=== PATIENT | male | born 1960 | race Caucasian/White ===

== ENCOUNTER → 2016-07-11 | Outpatient (CLI) | payer MEDICARE, MEDICAID ==
[~2016-07-11] MED LIST: DESV100T PO; HYDR2 PO
== END | disposition home or self-care (01) ==
LOC: RADPV 13:41
PROVIDERS: ATTEND Legal Medicine
DX: M16.0 Bilateral primary osteoarthritis of hip (principal); M24.852 Other specific joint derangements of left hip, not elsewhere classified
CPT/HCPCS: 73502

== ENCOUNTER → 2016-09-22 | Outpatient (CLI) | payer MEDICARE, MEDICAID ==
[~2016-09-22] MED LIST changes: +ARIP2 PO; +ATOR10TA84 PO; +BENZ-26 PO; +CIPR-278 PO; +DESV50TA PO; +DIAZ10TA PO; +DIAZ5 PO; +DULO30CA2 PO; +ESZO3 PO; +GUAI600T PO; +HYDR-3971 PO; +HYDR16TA PO; +LEVAQUIN PO; +LEVO500 PO; +MIRT15 PO; +MIRT30 PO; +OXYC10 PO; +OXYC10TA72 PO; +OXYC20TA79 PO; +OXYC30TA PO; +OXYC30TA2 PO; +OXYC80 PO; +OXYC80TA28 PO; +OXYM10TA PO; +PANT40TA25 PO; +QUET100T PO; +SULF-168 PO; +TRIA0.252 PO; +VENL-67 PO; +VENL-68 PO; +[UNRECOGNIZED DRUG - OTHER] PO
== END | disposition home or self-care (01) ==
LOC: RADPV 11:00
PROVIDERS: ATTEND Legal Medicine
DX: J98.11 Atelectasis (principal)
CPT/HCPCS: 71020

== ENCOUNTER → 2017-07-14 | Outpatient (CLI) | payer MEDICARE, MEDICAID ==
[~2017-07-14] MED LIST changes: -ARIP2 PO; -ATOR10TA84 PO; -BENZ-26 PO; -CIPR-278 PO; -DESV50TA PO; -DIAZ10TA PO; -DIAZ5 PO; -DULO30CA2 PO; -ESZO3 PO; -GUAI600T PO; -HYDR-3971 PO; -HYDR16TA PO; -LEVAQUIN PO; -LEVO500 PO; -MIRT15 PO; -MIRT30 PO; -OXYC10 PO; -OXYC10TA72 PO; -OXYC20TA79 PO; -OXYC30TA PO; -OXYC30TA2 PO; -OXYC80 PO; -OXYC80TA28 PO; -OXYM10TA PO; -PANT40TA25 PO; -QUET100T PO; -SULF-168 PO; -TRIA0.252 PO; -VENL-67 PO; -VENL-68 PO; -[UNRECOGNIZED DRUG - OTHER] PO
== END | disposition home or self-care (01) ==
LOC: RADPV 11:30
PROVIDERS: ATTEND Legal Medicine
DX: I70.0 Atherosclerosis of aorta (principal); J44.9 Chronic obstructive pulmonary disease, unspecified
CPT/HCPCS: 71046

== ENCOUNTER 2018-07-07 16:45 | Emergency (ER) | payer MEDICARE, MEDICAID ==
[~2018-07-07] VITALS: Ht 177.8 cm; Wt 73.6 kg
[2018-07-07] MEDS ORDERED: OXYC10 PO (17:19)
[2018-07-07] MEDS ORDERED: TAMS-1 PO (17:19)
[2018-07-07 18:55] LABS: BASOPHILS % (AUTO) 0.6 % (0.0-2.0); EOSINOPHILS % (AUTO) 0.7 % (1.0-6.0); HEMATOCRIT 35.6 % (41-53); HEMOGLOBIN 11.6 g/dL (13.5-17.5); LYMPHOCYTES # (AUTO) 1.8 K/uL (1.0-4.8); LYMPHOCYTES % (AUTO) 12.5 % (22.0-44.0); MEAN CORPUSCULAR HEMOGLOBIN 29.6 pg (26.0-34.0); MEAN CORPUSCULAR HGB CONC 32.5 G/dL (31.0-37.0); MEAN CORPUSCULAR VOLUME 91 fL (80-100); MONOCYTES # (AUTO) 1.3 K/uL (0.1-1.0); MONOCYTES % (AUTO) 8.9 % (2.0-9.0); NEUTROPHILS # (AUTO) 10.9 K/uL (1.8-7.7); NEUTROPHILS % (AUTO) 77.3 % (40.0-70.0); PLATELET COUNT (AUTO) 313 K/uL (150-450); RED BLOOD CELL COUNT(AUTO) 3.91 MIL/uL (4.50-5.90); RED CELL DISTRIBUTION WIDTH 14.4 % (11.5-14.5)
[2018-07-07 19:15] LABS: ANION GAP 6 mmol/L (8-16); CALCIUM, TOTAL 8.6 mg/dL (8.8-10.5); CARBON DIOXIDE 32 mmol/L (22-29); CHLORIDE 98 mmol/L (98-107); CREATININE 0.75 mg/dL (0.60-1.30); GLOMERULAR FILTR. RATE CALC > 60 mL/min (>60); GLUCOSE,RANDOM 96 mg/dL (70-110); POTASSIUM 3.7 mmol/L (3.5-5.1); SODIUM SERUM 136 mmol/L (136-145); UREA NITROGEN, BLOOD 9 mg/dL (7-18)
[2018-07-07 19:18] LABS: ALANINE AMINOTRANSFERASE 21 U/L (12-78); ALBUMIN 3.2 g/dL (3.4-5.0); ALKALINE PHOSPHATASE 68 U/L (46-116); ASPARTATE AMINOTRANSFERASE 21 U/L (15-37); BILIRUBIN,TOTAL 1.9 mg/dL (0.1-1.0); TOTAL PROTEIN, SERUM 6.5 g/dL (6.4-8.2)
[2018-07-07] MEDS ORDERED: LIDOCAINE/PF 1% 2 ML VIAL IM ONE (22:15)
[2018-07-07] MEDS ORDERED: CefTRIAXone SODIUM 1 GM/VIAL IM ONE (22:15)
[2018-07-07] MEDS ORDERED: SULFAMETHOX/TRIMETH DS 800-160 MG/TABLET PO ONE (22:15)
[2018-07-07] MEDS ORDERED: HYDROCODONE/ACETAMINOPHEN 5-325 MG TABLET PO ONE (22:30)
[2018-07-07 23:14] VITALS: BP 124/72
== END 2018-07-07 23:18 | disposition home or self-care (01) ==
LOC: EMS 16:45
DX: L03.115 Cellulitis of right lower limb (principal); F32.9 Major depressive disorder, single episode, unspecified; F17.210 Nicotine dependence, cigarettes, uncomplicated; Z88.6 Allergy status to analgesic agent; Z88.5 Allergy status to narcotic agent
CPT/HCPCS: 36415; 80053; 85025; 93970; 96372; 99284; J0696; J3490

== ENCOUNTER 2019-11-21 00:09 | Emergency (ER) | payer MEDICARE, MEDICAID ==
[~2019-11-21] VITALS: Ht 180.3 cm; Wt 69.1 kg
[~2019-11-21 00:09] MED LIST changes: +OXYC10TA59 PO; +TAMS-1 PO
[2019-11-21 02:57] VITALS: BP 141/83
== END 2019-11-21 03:30 | disposition home or self-care (01) ==
LOC: EMS 00:09
DX: M25.552 Pain in left hip (principal); M25.511 Pain in right shoulder; F32.9 Major depressive disorder, single episode, unspecified; F17.210 Nicotine dependence, cigarettes, uncomplicated; Z88.5 Allergy status to narcotic agent
CPT/HCPCS: 73503

== ENCOUNTER → 2021-02-05 | Outpatient (CLI) | payer MEDICARE, MEDICAID ==
[~2021-02-05] MED LIST changes: -HYDR2 PO; +HYDR2TAB37 PO
== END | disposition home or self-care (01) ==
LOC: RADPV 11:02
PROVIDERS: ATTEND Legal Medicine
DX: M79.89 Other specified soft tissue disorders (principal); M15.0 Primary generalized (osteo)arthritis
CPT/HCPCS: 73130-TC

== ENCOUNTER 2021-02-19 12:21 | Emergency (ER) | payer MEDICARE, MEDICAID ==
[~2021-02-19] VITALS: Ht 180.3 cm; Wt 68.2 kg
[2021-02-19 12:27] VITALS: BP 136/91
[2021-02-19] MEDS ORDERED: HYDROCODONE/ACETAMINOPHEN 5-325 MG TABLET PO ONE (14:15)
== END 2021-02-19 14:41 | disposition home or self-care (01) ==
LOC: EMS 12:26
DX: S62.307A Unspecified fracture of fifth metacarpal bone, left hand, initial encounter for closed fracture (principal); F32.9 Major depressive disorder, single episode, unspecified; F17.210 Nicotine dependence, cigarettes, uncomplicated; Z88.6 Allergy status to analgesic agent; W22.8XXA Striking against or struck by other objects, initial encounter; Y93.89 Activity, other specified; Y92.89 Other specified places as the place of occurrence of the external cause; Y99.8 Other external cause status
CPT/HCPCS: 99283

== ENCOUNTER → 2022-03-07 | Outpatient (CLI) | payer MEDICARE, MEDICAID | END | disposition home or self-care (01) | LOC: RADMN 10:54 | PROVIDERS: ATTEND Legal Medicine | DX: R06.02 Shortness of breath (principal) | CPT/HCPCS: 71046 ==

== ENCOUNTER 2024-03-08 12:07 | Emergency (ER) | payer MEDICARE, MEDICAID ==
[~2024-03-08] VITALS: Ht 180.3 cm; Wt 70.5 kg
[2024-03-08 12:16] VITALS: TEMP 98.5
[2024-03-08 12:47] LABS: BASOPHILS % (AUTO) 0.5 % (0.0-2.0); EOSINOPHILS % (AUTO) 0.7 % (1.0-6.0); HEMATOCRIT 40.2 % (41-53); HEMOGLOBIN 13.1 g/dL (13.5-17.5); LYMPHOCYTES # (AUTO) 1.9 K/uL (1.0-4.8); LYMPHOCYTES % (AUTO) 16.5 % (22.0-44.0); MEAN CORPUSCULAR HEMOGLOBIN 31.2 pg (26.0-34.0); MEAN CORPUSCULAR HGB CONC 32.6 G/dL (31.0-37.0); MEAN CORPUSCULAR VOLUME 96 fL (80-100); MONOCYTES # (AUTO) 0.7 K/uL (0.1-1.0); MONOCYTES % (AUTO) 6.4 % (2.0-9.0); NEUTROPHILS # (AUTO) 8.8 K/uL (1.8-7.7); NEUTROPHILS % (AUTO) 75.9 % (40.0-70.0); PLATELET COUNT (AUTO) 210 K/uL (150-450); RED CELL DISTRIBUTION WIDTH 13.9 % (11.5-14.5); WHITE BLOOD COUNT (AUTO) 11.5 K/uL (4.5-11.0)
[2024-03-08 12:54] LABS: ANION GAP 8 mmol/L (8-16); CARBON DIOXIDE 29 mmol/L (22-29); CHLORIDE 103 mmol/L (98-107); CREATININE 0.97 mg/dL (0.60-1.30); GLOMERULAR FILTR. RATE CALC > 60 mL/min (>60); GLUCOSE,RANDOM 72 mg/dL (70-110); POTASSIUM 4.1 mmol/L (3.5-5.1); SODIUM SERUM 140 mmol/L (136-145); UREA NITROGEN, BLOOD 13 mg/dL (7-18)
[2024-03-08 13:02] LABS: TROPONIN I-HIGH SENSITIVITY 4 ng/L (<76)
[2024-03-08 13:04] LABS: B-TYPE NATRIURETIC PEPTIDE 51 pg/mL (0-100)
[2024-03-08 13:13] LABS: COVID AG,FIA SOURCE NASAL SWAB
[2024-03-08 14:00] LABS: INFLUENZA TYPE A NEGATIVE FOR TYPE A (NEGATIVE); INFLUENZA TYPE B NEGATIVE FOR TYPE B (NEGATIVE); SARS-COV2 (COVID) ANTIGEN,FIA Negative (Negative)
[2024-03-08] MEDS: DEXAMETHASONE SOD PHOS 4 MG/ML 5 ML VIAL IM ONE (14:35)
[2024-03-08] MEDS: ALBUTEROL SULFATE 2.5 MG/0.5 ML NEB SOLUTION NEB ONE (14:46)
[2024-03-08] MEDS: IPRATROPIUM BROMIDE 0.5 MG/2.5 ML NEB SOLUTION NEB ONE (14:46)
[2024-03-08 14:50] VITALS: PULSE 78; RESP 18; O2SAT 99
[2024-03-08 15:02] VITALS: PULSE 78; RESP 18; O2SAT 100
[2024-03-08] MEDS ORDERED: METH4TAB3 PO (15:17)
[2024-03-08] MEDS ORDERED: ALBU18HF12 IH (15:17)
[2024-03-08 15:25] VITALS: BP 105/72; PULSE 78; RESP 16; O2SAT 100
== END 2024-03-08 15:37 | disposition home or self-care (01) ==
LOC: EMS 12:09
DX: J44.1 Chronic obstructive pulmonary disease with (acute) exacerbation (principal); F32.A Depression, unspecified; F17.210 Nicotine dependence, cigarettes, uncomplicated; F12.90 Cannabis use, unspecified, uncomplicated; Z88.5 Allergy status to narcotic agent; Z88.6 Allergy status to analgesic agent; Z90.49 Acquired absence of other specified parts of digestive tract; Z96.649 Presence of unspecified artificial hip joint; Z98.890 Other specified postprocedural states; Z20.822 Contact with and (suspected) exposure to COVID-19
CPT/HCPCS: 99285; 71045; 87426; 80048; 83880; 84484; 85025; 87804; 36415; 94640; 93005; 96372; J1100; J7613